=== PATIENT | male | born 1960 | race Caucasian/White ===

== ENCOUNTER → 2016-12-17 | Outpatient (CLI) | payer OTHER, BC ==
[~2016-12-17] MED LIST: BENICAR HCT 401 EAC1 PO; BENICAR40 MG PO; BUDEPRION SR100 MG PO; BUPROPION PO; HYDROCODON-ACE1 EAC7 PO; LEXAPRO 10 MG T10 MG PO; LOW DOSE ASPIRI81 M1 PO; NORCO 7.5-3251 EACH; OXYCODONE HCL15 MG PO; PROAIR HFA8.5 GM INH; ROBAXIN 750 MG750 M1; SIMVASTATIN40 MG PO; ZOCOR PO
== END ==
LOC: CAT 11:49
DX: M25.522 Pain in left elbow (principal)

== ENCOUNTER → 2017-09-09 | Outpatient (CLI) | payer OTHER, BC ==
[~2017-09-09] MED LIST changes: +BENICAR20 MG PO; +BUPROPION HCL150 M1 PO; +CLONAZEPAM 0.50.5 M1 PO; +LEXAPRO20 MG PO; +NORFLEX100 MG PO; +ORACEA40 MG PO; +PERCOCET PO; +ROSADAN45 GM; +ZYRTEC 10 MG TA10 MG PO
== END ==
LOC: CAT 10:17
DX: K76.0 Fatty (change of) liver, not elsewhere classified (principal)

== ENCOUNTER → 2017-09-15 | Outpatient (CLI) | payer OTHER, BC | LOC: ULTRA 09:27 | DX: R16.0 Hepatomegaly, not elsewhere classified (principal) ==

== ENCOUNTER 2017-10-07 05:22 | Day surgery (SDC) | payer OTHER, BC ==
[~2017-10-07] VITALS: Ht 172.7 cm; Wt 111.1 kg
--- NOTE | ~2017-10-07 | O ---
[facility] [place] [address] OPERATIVE REPORT Name: CAMDENDAVID Cruz Room #: DEP [facility].#: [id number] Admission: 10/07/17 Attend Phys: Jovan Frazier MD Discharge: 10/07/17 Date of : 56 Report #: [id number] THIS REPORT FOR: //name// CC: Jovan Gonsalez DATE OF SERVICE: 10/07/2017 PREOPERATIVE DIAGNOSES: 1. Epigastric hernia. 2. Umbilical hernia. POSTOPERATIVE DIAGNOSES: 1. Epigastric hernia. 2. Umbilical hernia. PROCEDURES PERFORMED: 1. Repair of epigastric hernia with small Ventralex patch. 2. Repair of umbilical hernia with medium Ventralex patch. ANESTHESIA: General. SURGEON: Jovan Frazier M.D. COMPLICATIONS: None. ESTIMATED BLOOD LOSS: 5 mL. PROCEDURE NOTE: With the patient under general anesthesia without paralysis, the abdomen is prepped and draped in sterile fashion. Timeout was performed. Preoperative IV antibiotic was administered. A 0.25% Marcaine was used to anesthetize the skin over the epigastric hernia and this was actually fairly high up in the epigastrium. The skin underneath the umbilicus was also anesthetized with 0.25% Marcaine. Transverse incision was made over the epigastric hernia. The properitoneal fat that protruded through was isolated from surrounding tissue. This measured about 2-3 cm. This was followed down to the fascia. The fascia defect was identified. The fascia defect was a little over a centimeter in width. The herniated properitoneal fat was reduced. Properitoneal space was then dissected open. After this space was opened, a small Ventralex patch was placed and opened up well. The strap of the Ventralex patch was incorporated in the fascial closure with 0 Prolene suture horizontal mattress fashion. After the fascia was closed, the strap was trimmed at the fascial level. Irrigation was performed. Skin was closed with 5-0 PDS in running subcuticular fashion. The umbilical hernia was then repaired. This was repaired in identical manner [address] [address] OPERATIVE REPORT Name: DAVID HANNAH Room #: DEP [facility] M.R.#: [id number] Admission: 10/07/17 Attend Phys: Jovan Frazier MD Discharge: 10/07/17 Date of : 56 Report #: [id number] as to the epigastric hernia. The incision was made in a curvilinear fashion underneath the umbilicus. Skin of the umbilicus was lifted off of the hernia sac and properitoneal fat. This was slightly larger in size, about 3.5 cm in size. This was cleaned and then down to the fascia was free from the fascia. The fascia defect was also larger, close to about 2 cm in width. The properitoneal fat that had pushed out was placed back into the properitoneal space. The dissection was then carried freeing the properitoneal space. A medium Ventralex patch was then able to be placed through the fascia defect underneath and placed in the properitoneal space. The mesh opened up well. The fascia was then closed with 0 Prolene horizontal mattress fashion incorporating the strap. The strap was then trimmed off at the fascia edge. Irrigation was performed. The skin was then sewn down to the fascia with 4-0 PDS. The skin was then closed with 4-0 PDS running subcuticular fashion. Dermabond was applied, 4 x 4 was used for dressing. OpSite was also placed over the 4 x 4s. The patient was awakened and taken to recovery. <ELECTRONICALLY SIGNED> By: Jovan Frzaier MD 10/16/17 1426 [id number] Jovan Frazier MD /nt
[~2017-10-07 05:22] MED LIST changes: -PERCOCET PO
[2017-10-07 11:25] LABS: HEMOGLOBIN 14.6 gm/dL (14.0-18.0)
[2017-10-07 12:00] VITALS: BP 132/66
[2017-10-07] MEDS ORDERED: PERCOCET PO (14:05)
== END 2017-10-07 15:00 | disposition home or self-care (01) ==
LOC: TBA 05:22 → OR 05:22
PROVIDERS: Surgery
DX: K43.9 Ventral hernia without obstruction or gangrene (principal); K42.9 Umbilical hernia without obstruction or gangrene; F32.9 Major depressive disorder, single episode, unspecified; F41.9 Anxiety disorder, unspecified; J45.909 Unspecified asthma, uncomplicated; I10 Essential (primary) hypertension; E78.5 Hyperlipidemia, unspecified; B19.10 Unspecified viral hepatitis B without hepatic coma; Z98.890 Other specified postprocedural states
CPT/HCPCS: 50010; 50101; 50119; 50130; 50386; 50403; 54118; 56524; 56525; 62110; 62900; 70005

== ENCOUNTER 2018-09-29 05:58 | Inpatient (IN) | payer OTHER, BC ==
[~2018-09-29] VITALS: Ht 175.3 cm; Wt 122.0 kg
--- NOTE | ~2018-09-29 | O ---
[facility] [place] [address] OPERATIVE REPORT Name: DAVID HANNAH Room #: 150-7 ADM IN M.R.#: [id number] Admission: 09/29/18 ������������������ Attend Phys: Estuardo Velazco Discharge: ������������������ Date of : 56 Report #: [id number] THIS REPORT FOR: //name// CC: Estuardo Gonsalez DATE OF SERVICE: 09/29/2018 PREOPERATIVE DIAGNOSES: Right shoulder pain, osteoarthritis, biceps tendinopathy. POSTOPERATIVE DIAGNOSES: Right shoulder pain, osteoarthritis, biceps tendinopathy. PROCEDURE PERFORMED: Right total shoulder arthroplasty with open biceps tenodesis. SURGEON: Estuardo Gipson M.D. TIGHTENER: Estefani Lynn PA-C. ANESTHESIA: General with preoperative ultrasound-guided interscalene block. FLUIDS: 1200 mL crystalloid. ESTIMATED BLOOD LOSS: Approximately 50 mL. IMPLANTS UTILIZED: DePuy Global Unite stem size 12 stem and proximal body 135 degree, 52 x 18 eccentric humeral head with a 48-mm anchor peg glenoid. DESCRIPTION OF PROCEDURE: After proper identification of the patient and operative site in preoperative holding area, the operative site was signed by myself. Prophylactic antibiotics given. The patient elected to receive an interscalene block after reviewing the risks, benefits, alternatives and potential complications with anesthesia. After a satisfactory block, the patient was brought back to the operative suite and carefully positioned in the beachchair after induction of satisfactory general anesthesia. Head of bed was elevated approximately 40 degrees. The right shoulder was sterilely prepped and draped in usual manner and placed in a Tenet spider limb positioning system. Final skin draping was with Ioban. Anterior deltopectoral approach was planned. Skin was incised sharply. Full thickness skin flaps were developed. Deltopectoral interval was identified. Cephalic vein was identified and retracted laterally. This was protected throughout the entirety of the procedure. Subdeltoid space was carefully opened. A Ardon deltoid retractor was utilized. At this point, long head of the biceps tendon was identified. Tenosynovitis was present. Tendon sheath was opened. Biceps was tenodesed to [address] [address] OPERATIVE REPORT Name: DAVID HANNAH Room #: 150-7 ADM IN M.R.#: [id number] Admission: 09/29/18 ������������������ Attend Phys: Estuardo Velazco Discharge: ������������������ Date of : 56 Report #: [id number] the undersurface of the pectoralis major tendon using #2 FiberWire proximal aspect. A tenotomy was performed and then, the proximal aspect of this was then followed. Bicipital groove was opened. Pronounced partial thickness tearing was noted within the bicipital groove and spurs were appreciated in this region. Next, the rotator interval was opened just along the superior border of the subscapularis. Anterior circumflex vessels were identified, ligated and cauterized. A lesser tuberosity osteotomy was performed with a flexible osteotome. Peripheral osteophytes around the humeral head were removed and the inferior capsule was carefully excised off the humerus. At this point, the capsule was bluntly reflected off the subscapularis using a right angle as well. Axillary nerve was identified and protected throughout the entire procedure. Humeral head was delivered into the wound and at this point, a humeral head osteotomy was performed at 135 degrees using a cutting template. The rotator cuff was otherwise intact. Humeral head was removed in its entirety with an oscillating saw cup was protected. Any peripheral osteophytes were then removed. The patient had coverage that could go in between a 52 and a 56 humeral head, although on the glenoid side, a 48 glenoid appeared to have the best overall fit and the 52 seemed just slightly too large, so the 48 was chosen. The humerus was reamed by hand broaches, were utilized up to a size 12 stem, which matched preoperative templating. Protection plate was applied. The joint was distracted with lamina oracle adf consultant and the remaining capsule and labrum were carefully released off the glenoid. There was excellent exposure of the glenoid. This was eburnated down to more surface of bone. The humeral head externally rotated and abducted some. It was rotated out of the way and a 48-mm guide was utilized. Guidepin was inserted. It was checked to be in the appropriate position. Glenoid face was reamed. Any remaining soft tissue around the periphery was carefully removed. Step drill was utilized. Then, the peripheral pegs were drilled and derotation pegs were utilized within the guide. These were removed. Joint was thoroughly irrigated with normal saline. All the pegs were contained and the peripheral pegs after hemostasis had been achieved with FloSeal, which was removed with irrigation. Cement was prepared on the back table and injected into the peripheral pegs using a Tuohy syringe. Central peg was bone grafted and prior to all of this, a trial glenoid implant was placed fully reduced, well seated and had good stability. This was removed and then, the glenoid implantation steps ensued. The glenoid was carefully impacted into position. Central peg had been bone grafted. It was fully seated and stable and held firmly in place until the cement had cured. Next, this was protected with a plastic dura and then, the humerus was approached. A 52 x 18 head with the eccentricity rotated more posterior superior provided the best overall fit and coverage of the humeral head and had approximately 50% translation posteriorly and good stability otherwise. This was a nice recreation of the proximal humeral anatomy. Trial implants were removed. Joint was thoroughly irrigated with normal saline. Drill holes were placed in the anterior cortex of the humerus where four #2 FiberWires were passed. Global Unite stem was prepared on the back table. It was impacted into position. The inferior 2 sutures were placed around the stem. Humeral head was carefully [facility] [address] [place] [address] OPERATIVE REPORT Name: DAVID HANNAH Room #: 150-7 ADM IN ..#: [id number] Admission: 09/29/18 ������������������ Attend Phys: Estuardo Velazco Discharge: ������������������ Date of : 56 Report #: [id number] impacted into position. It was reduced and had excellent stability and range of motion. Subscapularis was repaired with modified Chidi-Florian technique with four #2 FiberWires within the lateral portion of the rotator intervals closed with #2 FiberWire. The patient could easily rotate externally with the arm at the side to 40 degrees. Joint was again thoroughly irrigated with normal saline. One gram vancomycin powder was utilized, half of it deep, half of it more superficial. Deltopectoral interval was closed with 0 Vicryl, 2-0 Vicryl the subcutaneous tissues, final skin closure with running 4-0 Monocryl. Dermabond was applied followed by a sterile dressing as well as a sling and abduction pillow for the next 4 weeks postoperatively. Qualified animal assistant utilized throughout the entire procedure to aid in the patient limb positioning, visualization and retraction of soft tissues, instrument passage, closure and sling application. ��������������������������������������������� ���������������������������������������� By: ��������������������������������������������� 1200 1235 Estuardo Gipson MD /nt
[~2018-09-29 05:58] MED LIST changes: +DEPO-TESTO100 MG/1 M IM; +FLEXERIL PO; +FOLIC ACID1 MG PO; +IRON325 PO; +PERCOCET PO
[2018-09-29 08:30] VITALS: BP 103/56
[2018-09-29 17:02] VITALS: BP 123/71
[2018-09-29 19:24] VITALS: BP 124/62
[2018-09-30 03:58] VITALS: BP 131/83
--- NOTE | 2018-09-30 05:18 | NUR ---
ASSUMED CARE AT 1900, ASSESSMENT COMPLETED. PT REPORTS MODERATE-HIGH PAIN IN RIGHT SHOULDER, KENDELL DRESSING IS VISIBLE WITH SMALL AREA OF BLOOD ON DRESSING, POLAR PACK IN PLACE; CLAVICLE AND TOP OF SHOULDER ARE NOTICEABLY RED AND WARM, TENDER TO TOUCH. PLACED ADDITIONAL ICE PACK TO TOP OF SHOULDER WHERE POLAR PACK DOESN'T REACH. DENIES NAUSEA OR SOB. IV FLUIDS INFUSING, SCD'S ON, HAS BEEN UP TO TOILET MULTIPLE TIMES-NO TROUBLE URINATING. HAVE GIVEN BOTH IV AND PO PAIN MEDS, PER PT, THE ORDERED OXY/APAP IS LESS THAN WHAT HE WAS TAKING AT HOME. CALLS APPROPRIATELY FOR ASSISTANCE. WOULD LIKE MIRALAX OR SIMILAR TODAY TO HELP HIM HAVE A BM. NO OTHER CONCERNS, WILL CONTINUE TO MONITOR.
[2018-09-30 05:31] LABS: HEMATOCRIT 41.6 % (42.0-52.0)
[2018-09-30 05:44] LABS: POTASSIUM 4.2 mmol/L (3.5-5.1)
[2018-09-30 07:10] VITALS: BP 116/80
[2018-09-30 07:52] LABS: CALCIUM 9.1 mg/dL (8.5-10.1); POTASSIUM 4.5 mmol/L (3.5-5.1)
--- NOTE | 2018-09-30 09:17 | NUR ---
ORDERS RECEIVED FOR EVAL AND TREAT. OBSERVED Pt STAND AND AMBULATE IN ROOM WITHOUT DIFFICUTLY. SPOKE WITH Pt AND HE STATES HAVING NO DIFFICULTY WITH HIS MOBILITY AND WILL BED GOING HOME TODAY. INSTRUCTED IN RT ELBOW/WRIST ROM WITH Pt ABLE TO DEMONSTRATE CORRECTLY. Pt DECLINING FORMAL P.T. EVAL. Pt APPEARS SAFE FOR HOME
--- NOTE | 2018-09-30 10:54 | NUR ---
PT A&OX4, IV INFUSING FLUIDS IN L FA W/O COMPS. AMBULATES WITH STANDBY ASSIST. TRACYELL DRSG TO R SHOULDER INTACT WITH DRAINAGE SPOT FROM SURGERY NOT NEW. TOLERATING PO WELL.
[2018-09-30 13:56] VITALS: BP 116/80
== END 2018-09-30 15:06 | disposition home or self-care (01) | DRG 483 ==
LOC: PRE 05:58 → TBA 06:16 → 4E 06:16 → PRE 13:39 → 4E 15:33 → PRE 09-30 13:38 → 4E 09-30 15:06
PROVIDERS: Nurse Practitioner; Physician Assistant Surgical; ADMIT Orthopaedic Surgery Sports Medicine
PROC: 0RRJ0JZ Replacement of Right Shoulder Joint with Synthetic Substitute, Open Approach (ICD-10-PCS; principal; 2018-09-29)
PROC: 0LS30ZZ Reposition Right Upper Arm Tendon, Open Approach (ICD-10-PCS; principal; 2018-09-29)
DX: M19.011 Primary osteoarthritis, right shoulder (principal); M75.20 Bicipital tendinitis, unspecified shoulder; I10 Essential (primary) hypertension; J45.909 Unspecified asthma, uncomplicated; G47.33 Obstructive sleep apnea (adult) (pediatric); F32.9 Major depressive disorder, single episode, unspecified; F41.9 Anxiety disorder, unspecified; Z96.652 Presence of left artificial knee joint; E78.5 Hyperlipidemia, unspecified; E66.9 Obesity, unspecified; Z68.39 Body mass index [BMI] 39.0-39.9, adult; Z88.6 Allergy status to analgesic agent; Z79.899 Other long term (current) drug therapy; Z98.41 Cataract extraction status, right eye; Z87.891 Personal history of nicotine dependence; Z28.21 Immunization not carried out because of patient refusal
CPT/HCPCS: 10783; 50010; 50101; 50172; 50386; 50417; 50697; 50733; 50935; 51320; 51751; 52001; 52138; 52256; 52282; 53000; 53078; 54118; 55430; 56521; 56524; 56525; 56526; 56530; 57095; 57103; 62110; 62900; 64039; 65131; 70005

== ENCOUNTER → 2020-02-14 | Outpatient (CLI) | payer OTHER, BC | LOC: LAB 12:46 | PROVIDERS: ATTEND Anesthesiology | DX: Z01.818 Encounter for other preprocedural examination (principal); Z11.59 Encounter for screening for other viral diseases ==

== ENCOUNTER 2020-03-01 13:54 | Emergency (ER) | payer OTHER, BC ==
[~2020-03-01] VITALS: Ht 172.7 cm; Wt 113.8 kg
[2020-03-01 16:07] LABS: BASOPHILS 1.1 % (0.0-2.0); EOSINOPHILS 2.1 % (0.0-3.0); HEMATOCRIT 44.3 % (42.0-52.0); HEMOGLOBIN 15.1 gm/dL (14.0-18.0); LYMPHOCYTES 21.2 % (24.0-44.0); MCH 32.3 pg (26.0-34.0); MCHC 34.1 g/dL (28.0-37.0); MCV 94.9 fL (80.0-100.0); MONOCYTES 10.9 % (1.0-8.0); PLATELET COUNT 265 thou/uL (150-400); POLYS 64.7 % (36.0-66.0); RBC 4.67 mil/uL (4.50-6.00); WBC 6.2 thou/uL (4.0-11.0)
[2020-03-01 16:14] LABS: CALCIUM 8.8 mg/dL (8.5-10.1); CREATININE 1.1 mg/dL (0.7-1.3); POTASSIUM 4.2 mmol/L (3.5-5.1)
[2020-03-01 20:00] VITALS: BP 145/76
== END 2020-03-01 20:02 | disposition home or self-care (01) ==
LOC: ER 13:54
PROVIDERS: Nurse Practitioner
DX: M79.89 Other specified soft tissue disorders (principal); I10 Essential (primary) hypertension; J45.909 Unspecified asthma, uncomplicated; E78.5 Hyperlipidemia, unspecified; F32.9 Major depressive disorder, single episode, unspecified; F41.9 Anxiety disorder, unspecified; Z98.61 Coronary angioplasty status; Z79.899 Other long term (current) drug therapy; Z88.1 Allergy status to other antibiotic agents; Z88.5 Allergy status to narcotic agent; Z87.891 Personal history of nicotine dependence; Z96.82 Presence of neurostimulator; Z96.652 Presence of left artificial knee joint; Z98.890 Other specified postprocedural states

== ENCOUNTER → 2020-10-17 | Outpatient (CLI) | payer OTHER, BC ==
[~2020-10-17] MED LIST changes: +ATORVASTATIN CA20 MG PO; +CARAFATE 1 GM TA1 G1 PO; +CITALOPRAM HBR40 MG PO; +OMEPRAZOLE40 MG PO; +ROXICODONE15 MG PO
== END ==
LOC: LAB 14:59
PROVIDERS: ATTEND Internal Medicine Gastroenterology
DX: Z01.812 Encounter for preprocedural laboratory examination (principal); Z20.822 Contact with and (suspected) exposure to COVID-19

== ENCOUNTER → 2020-10-22 | Outpatient (CLI) | payer OTHER, BC ==
[~2020-10-22] VITALS: Ht 172.7 cm; Wt 115.7 kg
--- NOTE | 2020-10-24 17:06 | PATH ---
[facility] [place] [address] PATHOLOGY RPT PROCEDURE Name: CLAUDIO HANNAH Room #: REG CL M.R.#: [id number] Admission: 10/22/20 Date of : 56 Discharge: Report #: [id number] Path Case #: [id number] [facility] Accession Number: [id number] . 01 Material submitted: . PART A: colon - BIOPSY RANDOM COLON PART B: hepatic flexure - BIOPSY HEPATIC FLEXURE POLYP PART C: colon - BIOPSY TRANSVERSE COLON POLYP. Modifiers: transverse . 01 Clinical history: . COLONOSCOPY ABDOMINAL PAIN, NAUSEA, VOMITING, DIARRHEA POLYPS, DIVERTICULOSIS, HEMORRHOIDS A: R/O MICROSCOPIC COLITIS . . 02 Diagnosis: A. Large intestine mucosa, random colon, endoscopic biopsy: - One fragment showing mild focal acute cryptitis, see comment. - Negative for microscopic colitis. - Negative for dysplasia or malignancy. . B. Polyp, hepatic flexure, endoscopic biopsy: - Tubular adenoma. - Negative for high-grade dysplasia. . C. Polyp, transverse colon polyp, endoscopic biopsy: - Tubular adenoma. - Negative for high-grade dysplasia. (IUV:madelyn; 10/24/2020) QMS 10/24/2020 1118 Local . 02 Comment: Sections of the colonic mucosa designated "random colon" show focal cryptitis, and a moderately cellular lamina propria composed predominantly of lymphocytes and plasma cells and occasional eosinophils. Surface ulceration is not identified. There are no crypt abscesses, granulomas or viral inclusions. The process affects all the fragments with a similar intensity. Given the description, the differential diagnosis includes focal acute self limited episode of colitis, medication/drug induced colitis, or diverticulitis, as well as bowel preparation. Few of the sampled fragments are unremarkable. Please correlate clinically. (IUV:madelyn; 10/24/2020) . 02 Electronically signed: . Deepa Gregory MD, [place] [address] PATHOLOGY RPT PROCEDURE Name: ESTHERCLAUDIO De Los Santos Room #: REG CLI [facility].#: [id number] Admission: 10/22/20 Date of : 56 Discharge: Report #: [id number] Path Case #: [id number] NPI- [id number] . 01 Gross description: . A. The specimen is received in formalin, labeled "Claudio Hannah, biopsy random colon". Received are multiple segments of pale tidwell tissue ranging in size from 0.2-0.5 cm in maximum dimensions. The specimen is submitted entirely in cassette A1. . B. The specimen is received in formalin, labeled "Claudio Julo, biopsy hepatic flexure polyp". Received are three segments of pale tidwell tissue ranging in size from 0.4-0.8 cm in maximum dimensions. The specimen is submitted entirely in cassette B1. . C. The specimen is received in formalin, labeled "Claudio Julo, biopsy transverse colon polyp". Received are two segments of pale tidwell tissue measuring 0.3 and 0.4 cm in maximum dimensions. The specimen is submitted entirely in cassette C1. (CAA; 10/23/2020) QAC/QAC 10/23/2020 1045 Local . 02 Pathologist provided ICD-10: K62.89, D12.3, Z12.11 . 02 CPT . 550765, 583577, 942229 Specimen Comment: A courtesy copy of this report has been sent to [phone], [phone] Specimen Comment: [id number] Specimen Comment: Report sent to / DR HARTLEY Performed at: 01 [facility] [address] [place] [address] [address] [place] [id number] MD Moi Pfeiffer MD Phone: [phone] Performed at: [address] [id number] MD Deepa Gregory MD Phone: [phone]
== END | disposition home or self-care (01) ==
LOC: GI 08:37 → EDSTATUS 08:53 → GI 11:43
PROVIDERS: ATTEND Internal Medicine Gastroenterology
DX: R10.84 Generalized abdominal pain (principal); R19.7 Diarrhea, unspecified; K62.89 Other specified diseases of anus and rectum; D12.3 Benign neoplasm of transverse colon; K57.30 Diverticulosis of large intestine without perforation or abscess without bleeding; K64.8 Other hemorrhoids; K21.9 Gastro-esophageal reflux disease without esophagitis; I10 Essential (primary) hypertension; E78.5 Hyperlipidemia, unspecified; J45.909 Unspecified asthma, uncomplicated; M19.90 Unspecified osteoarthritis, unspecified site; F32.9 Major depressive disorder, single episode, unspecified; F41.9 Anxiety disorder, unspecified; G47.30 Sleep apnea, unspecified; Z98.890 Other specified postprocedural states; Z79.899 Other long term (current) drug therapy; Z87.891 Personal history of nicotine dependence; Z85.828 Personal history of other malignant neoplasm of skin; Z96.652 Presence of left artificial knee joint; Z96.612 Presence of left artificial shoulder joint; Z96.611 Presence of right artificial shoulder joint
CPT/HCPCS: 62110; 62900